=== PATIENT | female | born 1995 | race Caucasian/White ===

== ENCOUNTER 2017-01-22 15:46 | Emergency (ER) | payer BC, OTHER ==
--- NOTE | 2017-01-22 16:31 | ER Document Report ---
ED Medical Screen (RME) - General Chief Complaint: Vaginal Discharge Stated Complaint: VAGINAL DISCHARGE Time Seen by Provider: 01/22/17 16:29 Mode of Arrival: Ambulatory Information source: Patient TRAVEL OUTSIDE OF THE [place] IN LAST 30 DAYS: No - HPI Patient complains to provider of: vaginal d/c Onset: Other - pt states she found a tampon insdie her vagina that had been there for at least 4 days. She now has a discharge with a strong odor. Denies vaginal bleeding - Related Data Allergies/Adverse Reactions: No Known Allergies Allergy (Unverified 01/22/17 15:50) Past Medical History - General Last Menstrual Period: 01/12/17 - Social History Chew tobacco use (# tins/day): No Frequency of alcohol use: Occasional Drug Abuse: Marijuana Renal/ Medical History: Denies: Hx Peritoneal Dialysis Physical Exam - Vital signs Vitals: Temp Pulse Resp BP Pulse Ox 98.3 F 95 20 122/69 97 01/22/17 16:05 01/22/17 16:05 01/22/17 16:05 01/22/17 16:05 01/22/17 16:05 Course - Vital Signs Vital signs: Temp Pulse Resp BP Pulse Ox 98.3 F 95 20 122/69 97 01/22/17 16:05 01/22/17 16:05 01/22/17 16:05 01/22/17 16:05 01/22/17 16:05
[2017-01-22 17:44] LABS: APPEARANCE,URINE CLEAR; BILIRUBIN,URINE NEGATIVE (NEGATIVE); GLUCOSE, URINE NEGATIVE (NEGATIVE); KETONES,URINE NEGATIVE (NEGATIVE); LEUKOCYTE ESTERASE,URINE NEGATIVE (NEGATIVE); NITRITE,URINE NEGATIVE (NEGATIVE); PROTEIN,URINE NEGATIVE (NEGATIVE); URINE SPECIFIC GRAVITY 1.019; UROBILINOGEN,URINE NEGATIVE mg/dL (<2.0)
--- NOTE | 2017-01-22 19:08 | ER Document Report ---
ED General - General Chief Complaint: Vaginal Discharge Stated Complaint: VAGINAL DISCHARGE Time Seen by Provider: 01/22/17 16:29 Mode of Arrival: Ambulatory Information source: Patient TRAVEL OUTSIDE OF THE [place] IN LAST 30 DAYS: No - HPI Notes: Patient is a pleasant 22-year-old white female presents to the emergency department with report that 4 days ago she accidentally left a tampon in and then she removed it today but noticed a persistent odor to her vaginal discharge. She denies any abdominal pain or back pain or fever or chills. She is not diabetic. She reports no nausea or vomiting. No constipation or diarrhea. - Related Data Allergies/Adverse Reactions: No Known Allergies Allergy (Unverified 01/22/17 15:50) Past Medical History - General Information source: Patient Last Menstrual Period: 01/12/17 - Social History Smoking Status: Current Every Day Smoker Chew tobacco use (# tins/day): No Frequency of alcohol use: Occasional Drug Abuse: Marijuana Lives with: Alone Family History: Reviewed & Not Pertinent Patient has suicidal ideation: No Patient has homicidal ideation: No Renal/ Medical History: Denies: Hx Peritoneal Dialysis Review of Systems - Review of Systems Notes: REVIEW OF SYSTEMS: CONSTITUTIONAL : Denies fever, chills, or sweats. Denies recent illness. EENT: Denies eye, ear, throat, or mouth pain or symptoms. Denies nasal or sinus congestion or discharge. Denies throat, tongue, or mouth swelling or difficulty swallowing. CARDIOVASCULAR: Denies chest pain. Denies palpitations or racing or irregular heart beat. Denies ankle edema. RESPIRATORY: Denies cough, cold, or chest congestion. Denies shortness of breath, difficulty breathing, or wheezing. GASTROINTESTINAL: Denies abdominal pain or distention. Denies nausea, vomiting , or diarrhea. Denies blood in vomitus, stools, or per rectum. Denies black, tarry stools. Denies constipation. GENITOURINARY: Denies difficulty urinating, painful urination, burning, frequency, blood in urine, or discharge. FEMALE GENITOURINARY: Denies vaginal bleeding, heavy or abnormal periods, irregular periods. MUSCULOSKELETAL: Denies back or neck pain or stiffness. Denies joint pain or swelling. SKIN: Denies rash, lesions or sores. HEMATOLOGIC : Denies easy bruising or bleeding. LYMPHATIC: Denies swollen, enlarged glands. NEUROLOGICAL: Denies confusion or altered mental status. Denies passing out or loss of consciousness. Denies dizziness or lightheadedness. Denies headache. Denies weakness or paralysis or loss of use of either side. Denies problems with gait or speech. Denies sensory loss, numbness, or tingling. Denies seizures. PSYCHIATRIC: Denies anxiety or stress. Denies depression, suicidal ideation, or homicidal ideation. ALL OTHER SYSTEMS REVIEWED AND NEGATIVE. Dictation was performed using [employer] voice recognition software Physical Exam - Vital signs Vitals: Temp Pulse Resp BP Pulse Ox 98.3 F 95 20 122/69 97 01/22/17 16:05 01/22/17 16:05 01/22/17 16:05 01/22/17 16:05 01/22/17 16:05 - Notes Notes: PHYSICAL EXAMINATION: GENERAL: Well-appearing, well-nourished and in no acute distress. HEAD: Atraumatic, normocephalic. EYES:conjunctiva are normal. ENT: Nares patent NECK: Normal range of motion LUNGS: Breath sounds clear to auscultation bilaterally and equal. No wheezes rales or rhonchi. Normal external female genitalia HEART: Regular rate and rhythm without murmurs ABDOMEN: Soft, nontender, nondistended abdomen. No guarding, no rebound. No masses appreciated. Female :. Patient has mild vaginal discharge with odor. Cervix is benign with minimal residual bleeding. There is no cervical motion tenderness. No adnexal mass or tenderness. Musculoskeletal: no CVA tenderness. NEUROLOGICAL: Cranial nerves grossly intact. Normal speech, normal gait. Normal sensory, motor exams PSYCH: Normal mood, normal affect. SKIN: Warm, Dry, normal turgor, no rashes or lesions noted. Course - Re-evaluation Re-evalutation: 01/22/17 20:04 Mild bacterial vaginosis noted. Patient given p.o. Flagyl. Patient warned not to drink alcohol while taking Flagyl. No obvious evidence for PID or appendicitis or toxic shock related to the tampon being in place for 4 days. No evidence for UTI or . - Vital Signs Vital signs: Temp Pulse Resp BP Pulse Ox 98.3 F 95 20 122/69 97 01/22/17 16:05 01/22/17 16:05 01/22/17 16:05 01/22/17 16:05 01/22/17 16:05 - Laboratory Laboratory results interpreted by me: 01/22/17 16:50 Urine Blood MODERATE H Discharge - Discharge Clinical Impression: BV (bacterial vaginosis) Condition: Stable Disposition: HOME, SELF-CARE Instructions: Antibiotic Therapy ([facility]), Metronidazole ([facility]), Vaginosis, Bacterial ([facility]) Prescriptions: Metronidazole [Flagyl 500 mg Tablet] 500 mg PO BID #14 tablet
[2017-01-22] MEDS ORDERED: METRONIDAZOLE 500 MG TABLET PO ONE (20:04)
[2017-01-22 20:09] VITALS: BP 113/55
== END 2017-01-22 20:13 | disposition home or self-care (01) ==
LOC: ER 15:46
DX: N76.0 Acute vaginitis (principal); B96.89 Other specified bacterial agents as the cause of diseases classified elsewhere; F17.200 Nicotine dependence, unspecified, uncomplicated
CPT/HCPCS: 81001; 81025; 87210; 87491; 87591; 99283